=== PATIENT | female | born 2000 | race American Indian/Alaskan Native ===

== ENCOUNTER 2022-02-11 13:48 | Emergency (ER) | payer MEDICAID ==
[2022-02-11 14:07] VITALS: BP 135/51
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
== END 2022-02-11 16:02 | disposition home or self-care (01) ==
LOC: ED 13:48
DX: M54.2 Cervicalgia (principal); M54.50 Low back pain, unspecified; V87.7XXA Person injured in collision between other specified motor vehicles (traffic), initial encounter; Y93.89 Activity, other specified; Y92.488 Other paved roadways as the place of occurrence of the external cause; Y99.8 Other external cause status
CPT/HCPCS: 99282